=== PATIENT | male | born 1970 | race Caucasian/White ===

== ENCOUNTER 2023-08-30 10:21 | Inpatient (IN) ==
--- NOTE | 2023-08-04 14:35 | PAT Medication Instructions ---
Medication Instructions Date of Service August 04, 2023 Home Medications atenolol 50 mg tablet 50 mg PO QAM atorvastatin 40 mg tablet 40 mg PO PM cetirizine 10 mg tablet (Zyrtec) 10 mg PO QPM empagliflozin 25 mg tablet (Jardiance) 25 mg PO QAM famotidine 40 mg tablet 40 mg PO BID lansoprazole 30 mg delayed release,disintegrating tablet 30 mg PO BID rizatriptan 10 mg tablet 10 mg PO DIRECTED PRN Migraine Headache tamsulosin 0.4 mg capsule 0.4 mg PO HS fluticasone propionate 50 mcg/actuation nasal spray,suspension (Flonase Allergy Relief) 1 spray intranasal UD PRN when cutting grass semaglutide 0.25 mg or 0.5 mg (2 mg/3 mL) subcutaneous pen injector (Ozempic) 0.5 mg subcut WK MEDICATION INSTRUCTIONS: Continue as directed fluticasone propionate 50 mcg/actuation nasal spray,suspension (Flonase Allergy Relief) 1 spray intranasal UD PRN when cutting grass rizatriptan 10 mg tablet 10 mg PO DIRECTED PRN Migraine Headache Take morning of surgery With a small sip of water, OTHERWISE NOTHING TO EAT OR DRINK AFTER MIDNIGHT: atenolol 50 mg tablet 50 mg PO QAM famotidine 40 mg tablet 40 mg PO BID lansoprazole 30 mg delayed release,disintegrating tablet 30 mg PO BID Take evening before surgery tamsulosin 0.4 mg capsule 0.4 mg PO HS atorvastatin 40 mg tablet 40 mg PO PM cetirizine 10 mg tablet (Zyrtec) 10 mg PO QPM famotidine 40 mg tablet 40 mg PO BID lansoprazole 30 mg delayed release,disintegrating tablet 30 mg PO BID Other Notes STOP TAKING 3 DAYS BEFORE SURGERY: empagliflozin 25 mg tablet (Jardiance) 25 mg PO QAM PER RN PHONE INTERVIEW, LAST DOSE PRIOR TO SURGERY TO BE 08/22/23: semaglutide 0.25 mg or 0.5 mg (2 mg/3 mL) subcutaneous pen injector (Ozempic) 0.5 mg subcut WK If you have any questions please call us at [phone] or [phone] or [phone] or [phone]
--- NOTE | 2023-08-12 13:37 | Anesthesiology Consultation ---
Date of Service August 12, 2023 Assessment & Plan (1) Encounter for pre-operative examination: Plan - check BSG am DOS. - awaiting surgeon ordered medical clearance. Chart Review Chart Review: Pending: Refer to Additional Notes / Consult section and Patient seen in Pre Admission Testing Teaching & Discussion Pre-Anesthesia Teaching/Discussion Notes: Instructed NPO after midnight before surgery, except medications with 15 cc of water. Medication instructions provided according to the PAT guidelines. History Surgery Operation Date: 08/30/23 07:45 Proposed Procedures p L4-S1 Decompression and Fusion with Spinal Cord Monitoring - Tyson Harris DO Height/Weight Height: 5 ft 10.5 in Weight: 101.1 kg Allergies Allergy/AdvReac Type Severity Reaction Status Date / Time No Known Allergies Allergy Verified 08/04/23 13:44 Medications Home Medications Medication Instructions Recorded Confirmed Last Taken atenolol 50 mg tablet 50 mg PO QAM 08/24/22 08/04/23 Unknown atorvastatin 40 mg tablet 40 mg PO PM 08/24/22 08/04/23 Unknown cetirizine 10 mg tablet (Zyrtec) 10 mg PO QPM 08/24/22 08/04/23 Unknown empagliflozin 25 mg tablet 25 mg PO QAM 08/24/22 08/04/23 Unknown (Jardiance) famotidine 40 mg tablet 40 mg PO BID 08/24/22 08/04/23 Unknown lansoprazole 30 mg delayed 30 mg PO BID 08/24/22 08/04/23 Unknown release,disintegrating tablet rizatriptan 10 mg tablet 10 mg PO DIRECTED PRN Migraine 08/24/22 08/04/23 U nknown Headache tamsulosin 0.4 mg capsule 0.4 mg PO HS 08/24/22 08/04/23 Unknown fluticasone propionate 50 1 spray intranasal UD PRN when 08/04/23 08/04/23 Unknown mcg/actuation nasal cutting grass spray,suspension (Flonase Allergy Relief) semaglutide 0.25 mg or 0.5 mg (2 0.5 mg subcut WK 08/04/23 08/04/23 08/01/23 mg/3 mL) subcutaneous pen injector (Ozempic) Past Medical History Medical History (Updated 08/12/23 @ 13:46 by Tiffanie M. Onink, PA-C) BPH (benign prostatic hyperplasia) Degenerative disc disease Diabetes mellitus, type 2 NIDDM Dyslipidemia GERD (gastroesophageal reflux disease) controlled, stable per pt Hiatal hernia History of COVID-19 x2, most recent Jan 2022 > not hospitalized > symptoms resolved HTN (hypertension) controlled, stable per pt Migraines Sleep apnea no device Patient denies h/o stroke, seizures, heart attack, heart failure, blood clots/DVTs or blood transfusions. Exercise / Class Metabolic Activity II 4-5 Yardwork/Stairs/Walk up hill (denies chest discomfort or shortness of breath with one flight of stairs) Past Family History Family History Mother Diabetes Past Surgical History Surgical History H/O wisdom tooth extraction History of colonoscopy History of colonoscopy with polypectomy (03/2023) History of endoscopy History of spinal surgery (discectomy) lumbar History of vasectomy Past Anesthesia History No Hx of Anesthesia Complications and No Family Hx of Anesthesia Complications History of PONV No Hx of PONV and No Hx of Motion Sickness Social History Smoking Status: Never smoker tobacco type: smokeless tobacco Do You Dip or Chew Tobacco: No (hx, quit a few yrs ago/advised) Hx Alcohol Use: Yes alcohol intake frequency: holidays/special occasions only Hx Substance Use: No substance use type: does not use Review of Systems Patient denies chest pain, shortness of breath, dyspnea on exertion, fever, chills, cough, wheezing, or palpitations. Physical Exam Vital Signs Vitals BP 101/70 P 87 TEMP 98.4 SP02 97% on RA RESP 18 Physical Patient resting comfortably in chair in no acute distress, alert and oriented, responding appropriately throughout visit Full cervical extension range of motion without pain TMD 3.5 finger breadths Mallampati Score 2 Dentition:one crown, denies chipped or loose teeth, caps/crowns, implants or bridges Lungs: normal respiratory effort. Good air movement, clear throughout to auscult ation, no adventitious breath sounds Cardiac: regular rate and rhythm, no murmurs noted Carotid arteries: negative bruit bilat Lab Results Anesthesia Preop Results Results Anesthesia Widget: WBC 5.30 K/ul (4.8-10.8) 08/12/23 Hgb 16.5 g/dl (14.0-18.0) 08/12/23 Hct 48.7 % (42.0-52.0) 08/12/23 Plt 189 K/uL (130-400) 08/12/23 Na 138 mmol/L (136-145) 08/12/23 K 4.5 mmol/L (3.5-5.1) 08/12/23 Cl 105 mmol/L (98-107) 08/12/23 CO2 27 mmol/L (21-32) 08/12/23 BUN 22 mg/dl (6-23) 08/12/23 Creat 1.18 mg/dl (0.6-1.4) 08/12/23 Glucose Level 85 mg/dl (70-99(Fasting)) 08/12/23 PT 10.9 Seconds (9.0-12.0) 08/12/23 PTT 27 Seconds (21-31) 08/12/23 INR 1.0 (0.9-1.1) 08/12/23 HA1c 5.9 % (4.5-5.6) H 08/12/23 Urine Color Yellow 08/12/23 Urine Appearance Clear (Clear) 08/12/23 Urine pH 5.0 (4.5-7.5) 08/12/23 Urine Specific [place] 1.036 (1.000-1.030) H 08/12/23 Urine Protein Negative (Negative) 08/12/23 Urine Glucose (UA) 3+ (Negative) H 08/12/23 Urine Ketones Negative (Negative) 08/12/23 Urine Blood Negative (Negative) 08/12/23 Urine Nitrite Negative (Negative) 08/12/23 Urine Bilirubin Negative (Negative) 08/12/23 Urine Urobilinogen Negative (Negative) 08/12/23 Urine Leukocyte Esterase Negative (Negative) 08/12/23 Blood Type A Positive 08/12/23 Antibody Screen NEGATIVE 08/12/23 Testing Electrocardiogram Date: 08/12/23 NSR, rate 80 bpm Chest X-Ray Date: 08/12/23 No active disease in the chest. Stress Test Date: 01/02/21 Exercise MPHR 86% Negative stress echo EF 65% Normal LV wall motion No significant valvular pathology
--- NOTE | 2023-08-30 10:10 | History & Physical Bridge Note ---
Date of Service August 30, 2023 History & Physical Bridge Note I have examined the patient, reviewed the History & Physical and in the interval since the performance of the History & Physical I have noted the following changes of clinical significance: no changes noted
--- NOTE | 2023-08-30 10:11 | History & Physical Report ---
Date of Service August 30, 2023 Assessment & Plan (1) Neurogenic claudication due to lumbar spinal stenosis: Plan: L4-S1 decompression and fusion History of Present Illness Chief Complaint: Back and bilateral leg pain Primary Care Provider: Ab Crain DO This is a 53-year-old male presents with chronic persistent back and bilateral leg pain after failing since course of nonoperative care is here for surgical intervention. Allergies Allergy/AdvReac Type Severity Reaction Status Date / Time No Known Allergies Allergy Verified 08/04/23 13:44 Home Medications Medication Instructions Recorded Confirmed Type atenolol 50 mg tablet 50 mg PO QAM 08/24/22 08/04/23 History atorvastatin 40 mg tablet 40 mg PO PM 08/24/22 08/04/23 History cetirizine 10 mg tablet (Zyrtec) 10 mg PO QPM 08/24/22 08/04/23 History empagliflozin 25 mg tablet 25 mg PO QAM 08/24/22 08/04/23 History (Jardiance) famotidine 40 mg tablet 40 mg PO BID 08/24/22 08/04/23 History lansoprazole 30 mg delayed 30 mg PO BID 08/24/22 08/04/23 History release,disintegrating tablet rizatriptan 10 mg tablet 10 mg PO DIRECTED PRN Migraine 08/24/22 08/04/23 History Headache tamsulosin 0.4 mg capsule 0.4 mg PO HS 08/24/22 08/04/23 History fluticasone propionate 50 1 spray intranasal UD PRN when 08/04/23 08/04/23 History mcg/actuation nasal cutting grass spray,suspension (Flonase Allergy Relief) semaglutide 0.25 mg or 0.5 mg (2 0.5 mg subcut WK 08/04/23 08/04/23 History mg/3 mL) subcutaneous pen injector (Ozempic) Past Med/Surg History Problem List (Updated 08/30/23 @ 10:11 by Tyson Harris DO) Neurogenic claudication due to lumbar spinal stenosis Encounter for pre-operative examination Crushing injury of right forearm (Acute) 10/26/14 Medical History (Updated 08/30/23 @ 10:11 by Tyson Harris DO) Hiatal hernia Migraines Degenerative disc disease Diabetes mellitus, type 2 NIDDM History of COVID-19 x2, most recent Jan 2022 > not hospitalized > symptoms resolved HTN (hypertension) controlled, stable per pt Sleep apnea no device GERD (gastroesophageal reflux disease) controlled, stable per pt Dyslipidemia BPH (benign prostatic hyperplasia) Surgical History History of endoscopy History of colonoscopy with polypectomy (03/2023) History of colonoscopy H/O wisdom tooth extraction History of spinal surgery (discectomy) lumbar History of vasectomy Family History Mother Diabetes Social History Smoking Status: Never smoker Second Hand Exposure: No; Do You Dip or Chew Tobacco: No (hx, quit a few yrs ago/advised); Hx Alcohol Use: Yes Hx Substance Use: No Preferred Language: Serbian Communication Ability: Effective Customer Resource Specialist Required: No Beliefs That Will Affect Care: None Current Living Situation: Spouse Feels Safe at Home: Yes Assistive Devices: Contacts and Glasses Physical Exam Physical Exam: Patient is alert and oriented Heart regular in rhythm Lungs clear
[~2023-08-30 10:21] MED LIST: HYDROmorphone INJ 2 MG/ML SYR/VIAL ONE; MIDAZOLAM HCL 1 MG/ML 2ML VIAL ONE
[2023-08-30] MEDS: ACETAMINOPHEN 500 MG TAB PO SCH (10:54)
[2023-08-30] MEDS: CeleBREX 200 MG CAP PO SCH (10:55)
[2023-08-30] MEDS: GABAPENTIN 900 MG DOSE PO SCH (10:55)
[2023-08-30] MEDS: LR 60ML/HR IV SCH (10:55)
[2023-08-30] MEDS: LR 15ML/HR IV SCH (11:10)
[2023-08-30] MEDS ORDERED: ATROPINE SULFATE 0.1 MG/ML 10ML SYR IV PRN (11:13)
[2023-08-30] MEDS ORDERED: DROPERIDOL 5 MG/2 ML VIAL IV PRN (11:13)
[2023-08-30] MEDS ORDERED: ePHEDrine sulfate 50 MG/ML AMP IV PRN (11:13)
[2023-08-30] MEDS: ceFAZolin 2000MG 2,000 MG/15 ML SYR IV SCH ×2 (11:25→20:13)
[2023-08-30] MEDS ORDERED: ONDANSETRON INJ 2 MG/ML 2 ML VIAL ONE (11:53)
[2023-08-30] MEDS ORDERED: LIDOCAINE 2% 2 ML VIAL/AMP(20MG/ML) INFIL ONE (11:53)
[2023-08-30] MEDS ORDERED: SODIUM CHLORIDE 0.9% PF INJ 10 ML VIAL ONE (11:53)
[2023-08-30] MEDS ORDERED: SUGAMMADEX SODIUM 200 MG/2 ML VIAL IV ONE (11:53)
[2023-08-30] MEDS ORDERED: PHENYLEPHRINE HCL 10 MG/ML VIAL ONE (11:53)
[2023-08-30] MEDS ORDERED: PROPOFOL IV EMULSION 10 MG/ML 20 ML VIAL IV ONE (11:53)
[2023-08-30] MEDS ORDERED: DEXAMETHASONE SOD INJ 4 MG/ML VIAL ONE (11:53)
[2023-08-30] MEDS ORDERED: ROCURONIUM BROMIDE 10 MG/ML 5 ML VIAL IV ONE ×2 (11:53→11:56)
[2023-08-30] MEDS: BUPIVACAINE/EPINEPHRINE 0.25% 1:200,000 30 ML VIAL ONE (12:20)
[2023-08-30] MEDS ORDERED: ePHEDrine sulfate 50 MG/ML AMP ONE (13:26)
[2023-08-30] MEDS: ceFAZolin 330 MG/ML 1 GM VIAL ONE (13:41)
[2023-08-30] MEDS: FLOSEAL HEMOSTATIC MATRIX 10ML TOP ONE (13:41)
--- NOTE | 2023-08-30 13:49 | Operative Report ---
Post Operative Report Pre & Post Diagnosis Operation Date: 08/30/23 12:15 Pre-Op Diagnosis: Neurogenic claudication due to lumbar spinal stenosis, L5 - S1 Post-Op Diagnosis: Neurogenic claudication due to lumbar spinal stenosis, L5 - S1 I identified the patient and participated in the time-out.: Yes Procedure Operation Date: 08/30/23 12:15 Actual Procedures #1 revision decompression with bilateral medial facetectomies and foraminotomies L4-L5 L5-S1. #2 posterior spinal fusion L4-L5 L5-S1. #3 placed posterior instrumentation L4-S1. #4 interbody fusion L4-L5 L5-S1. #5 there is a Spira limb by 26 mm at L4-5 and 12 x 26 mm x 2 at L5-S1. #6 placement locally harvested morselized autograft and posterior gutters. #7 placement infuse collagen sponge combined with Koros in the posterior lateral gutters and Morpheus interbody space. Surgeon Tyson Harris, DO [facility] Stephanie Vanegas Estimated Blood Loss 200 Findings See Below The patient is 5 foot 10 weighing over 100 kg with a BMI in excess of 31. Patient body habitus did contribute to significant technical difficulty with positioning exposure and the procedure itself adding at least 50% increased operative time. Specimens None Indications This is a 53-year-old male who presents problems diagnosis after failing course of nonoperative care is here for surgical invention. Description of Procedure Patient was met with identified informed consent obtained. Patient was then taken to the operative suite underwent ablation placed in a prone position on the Ketan table on top of the Phoenix frame. All bony prominences well-padded eyes inspected to ensure no external pressure placed upon the. Sharp dissection with the assistance of Bovie cautery was then performed down to and exposing the remaining lamina and transverse processes of L4-L5 and the sacral ala bilaterally. From caudal cephalad fashion revision decompression was performed. I performed a bilateral medial facetectomies and foraminotomies at L5-S1 addressing significant subarticular and foraminal disease. This was followed by bilateral medial facetectomies foraminotomies L4-L5 addressing severe subarticular and foraminal stenosis. Pedicle screws were then placed and held for L5 and S1 levels bilaterally with assistance of fluoroscopy in the process jewel placed. By way of transforaminal approach on the right a discectomy of L5- S1 was performed endplates guided to subcortical bleeding bone and a 12 x 26 mm spiral cage filled with Morpheus bone graft tapped in position. Then proceeded to L5 S1 neuroforamen on the left. Discectomy again performed endplates guided to subcortical bleeding bone and a second 12 x 26 mm spiral cage filled Morpheus bone graft tapped in position. Then proceeded L4-[address] transforaminal approach and left complete discectomy performed endplates guided to subcortical bleeding bone and a 11 x 26 mm Spira cage with Morpheus tapped in position. The rods then compressed locked in final position bilaterally. The transverse processes of L4-5 and sacral ala burred to subcortical bleeding bone. Infuse collagen sponge combined with Koros bone graft and locally harvested morselized graft was then placed in the posterior gutters. 15 round EMANUEL inserted. The incision was then closed with 1 Vicryl in the fascia 2-0 Vicryl subcutaneously and 4 Monocryl for final skin closure. Steri-Strips sterile dressing placed. Patient awakened taken to PACU stable condition. Please note Stephanie Vanegas was present at the entire procedure and all the patient position complex portion of the surgery and final skin closure. I attest to the content of the Intraoperative Record and any orders documented therein. Any exceptions are noted below.
[2023-08-30] MEDS: HYDROmorphone INJ 2 MG/ML SYR/VIAL IV PRN (14:08)
--- NOTE | 2023-08-30 14:18 | Fluoroscopy Report ---
FL lumbar spine 2-3V CLINICAL HISTORY: L4-S1 DECOMPRESSION AND FUSION TECHNIQUE: 2 views were obtained with the C-arm in the OR with the above procedure. Total fluoroscopy time was 30 seconds. Radiation dose was 23.8 mGy. Comparison: None available at the time of this dictation. FINDINGS/IMPRESSION: Intraoperative images were obtained of L4-S1 decompression and fusion. Please correlate with intraoperative fluoroscopy and operative report. ACT 112: Negative or not required by law. Electronically signed by: Shemar Mansfield M.D. 08/30/2023 2:17 PM
[2023-08-30] MEDS ORDERED: MAGNESIUM HYDROXIDE SUSP 30 ML UDC PO PRN (15:18)
[2023-08-30] MEDS ORDERED: diphenhydrAMINE Capsule 25 MG CAP PO PRN (15:18)
[2023-08-30] MEDS ORDERED: METOCLOPRAMIDE HCL INJ 5 MG/ML 2 ML VIAL IV PRN (15:18)
[2023-08-30] MEDS ORDERED: NALOXONE HCL 0.4 MG/1 ML VIAL/CARP IV PRN (15:18)
[2023-08-30] MEDS ORDERED: ACETAMINOPHEN 1,000 MG/100 ML VIAL IV PRN (15:18)
[2023-08-30] MEDS ORDERED: PHARMACY GLYCEMIC MGMT CONSULT PRN (15:18)
[2023-08-30] MEDS ORDERED: RIZATRIPTAN BENZOATE 10 MG TAB PO PRN (15:18)
[2023-08-30] MEDS ORDERED: bisacodyL 10 MG SUPP PR PRN (15:18)
[2023-08-30] MEDS ORDERED: ONDANSETRON 4 MG OD TAB PO PRN (15:18)
[2023-08-30] MEDS ORDERED: ALUMINUM/MAGNESIUM SUSP 30 ML UDC PO PRN (15:18)
[2023-08-30] MEDS ORDERED: HYDROmorphone INJ 1 MG/ML SYRINGE IV PRN (15:18)
[2023-08-30] MEDS ORDERED: FAMOTIDINE 20 MG TAB PO PRN (15:18)
[2023-08-30] MEDS ORDERED: ACETAMINOPHEN 500 MG TAB PO PRN (15:18)
[2023-08-30] MEDS ORDERED: LORazepam 0.5 MG TAB PO PRN (15:18)
[2023-08-30] MEDS ORDERED: HYDROmorphone INJ 0.5 MG/0.5 ML SYR IV PRN (15:18)
[2023-08-30] MEDS ORDERED: SOD PHOSPHATE/SOD BIPHOSPHATE ENEMA 132 ML BTL PR PRN (15:18)
[2023-08-30] MEDS ORDERED: ONDANSETRON INJ 2 MG/ML 2 ML VIAL IV PRN (15:18)
[2023-08-30] MEDS ORDERED: LORazepam 0.5 MG in SYRINGE 0.25 ML IV PRN (15:18)
[2023-08-30] MEDS ORDERED: PROMETHAZINE HCL 12.5 MG in SODIUM CHLORIDE 0.9% 50 ML IV PRN (15:18)
[2023-08-30] MEDS ORDERED: DO NOT ADMINISTER PNEUMOCOCCAL VACCINE PRN (15:18)
[2023-08-30] MEDS ORDERED: DO NOT ADMINISTER FLU VACCINE PRN (15:18)
[2023-08-30] MEDS ORDERED: hydrOXYzine HCl 25 MG TAB PO PRN (15:18)
[2023-08-30] MEDS: SODIUM CHLORIDE 0.9% 1,000 ML IV SCH (15:43)
[2023-08-30] MEDS ORDERED: GLUCAGON FOR INJ 1 MG VIAL IM PRN (15:45)
[2023-08-30] MEDS ORDERED: CARBOHYDRATES FOR HYPOGLYCEMIA PO PRN (15:45)
[2023-08-30] MEDS ORDERED: GLUCOSE 40% GEL 15 GM TUBE PO PRN (15:45)
[2023-08-30] MEDS ORDERED: DEXTROSE 50% 50 ML SYRINGE IV PRN (15:45)
[2023-08-30] MEDS ORDERED: GLUCOSE 10 TAB/TUBE PO PRN (15:45)
--- OUTSIDE RECORDS SUMMARY | 2023-08-30 16:06 | External Medical Summary | Summary of Care ---
Author Name Unknown Organization [facility] Address [address] [address] Phone [phone] Care Team Providers Care Application Chemist Name Role Phone Breann Hooker DO, David Vincent Primary Care Provid er Reason for Visit * Reason Comments pre-op exam Back surgery UOC 08/15 5 Encounter Details Date Type Department Care Team (Late st Contact Info) Description 08/16/2023 9:00 AM EDT Office Visit [facility] [address] [phone] Eloy Ding MD [address] [id number] Preoperative clearance*; Displacement of lumbar intervertebral disc without myelopathy; Type 2 diabetes mellitus with hemoglobin A1c goal of less than 7.0% ([facility]); HTN, GOAL BELOW 140/90; Dyslipidemia; MARIAMA (obstructive sleep apnea) Allergies No known active allergiesdocumented as of this encounter (statuses as of 08/16/2023) Medications Medication Sig Dispensed Refills Start Date End Date Status NITROGLYCERIN 0.4 MG SL SUBLIndications:Ch est pain One tablet under tongue if needed for chest pain. May repeat 3 times. If chest pain continues, call [phone] 03/21/2009 Active Additional Information Patient not taking.Reported on 08/16/2023 Cetirizine HCl 10 MG Oral Capsule Take 1 Capsule by mouth in the morning. Active diphenhydrAMINE-AP AP (sleep) 25-500 MG Oral Tablet Take 1 Tablet by mouth daily as needed for Sleep. Active ONETOUCH DELICA LANCETS 33G MISCIndications:Ty pe 2 diabetes mellitus with hemoglobin A1c goal of less than 7.0% (HCC) Test blood sugar two times a day Dx:E11.9 100 Each 11 04/09/2017 Active Tamsulosin HCl 0.4 MG Oral Capsule (Flomax)Indication s:BPH without obstruction/lower urinary tract symptoms Take 1 Capsule by mouth in the morning. 90 Capsule 1 08/26/2022 Active OneTouch Verio In Vitro Strip (Glucose Blood)Indications: Type 2 diabetes mellitus with hemoglobin A1c goal of less than 7.0% (HCC) Test blood sugar two times a day DX: E11.9 100 Strip 11 09/23/2022 Active Empagliflozin 25 MG Oral Tablet (Jardiance)Indicat ions:Type 2 diabetes mellitus with hemoglobin A1c goal of less than 7.0% (HCC) TAKE ONE TABLET BY MOUTH EVERY MORNING 90 Tablet 3 01/19/2023 Active Atorvastatin Calcium 40 MG Oral Tablet (Lipitor)Indicatio ns:Hyperlipidemia with target LDL less than 130 TAKE ONE TABLET BY MOUTH DAILY 90 Tablet 3 01/19/2023 Active Ozempic (0.25 or 0.5 MG/DOSE) 2 MG/3ML Solution Pen-injector (Semaglutide(0.25 or 0.5MG/DOS)) Inject 0.375 mg under the skin once weekly 9 mL 1 01/27/2023 Active Lansoprazole 30 MG Oral Capsule Delayed Release (Prevacid)Indicati ons:Reflux esophagitis TAKE ONE CAPSULE BY MOUTH EVERY MORNING AND TAKE ONE CAPSULE BEFORE BEDTIME 180 Capsule 2 03/23/2023 03/22/2024 Active Rizatriptan Benzoate 10 MG Oral Tablet DisintegratingIndi cations:Migraine with aura, intractable TAKE 1 TABLET BY MOUTH NEEDED FOR MIGRAINE. MAY REPEATIN 2 HOURS IF NEEDED. 10 Tablet 3 05/25/2023 05/24/2024 Active Hydrocortisone (Perianal) 2.5 % External Cream (Proctozone-HC)Ind ications:Internal hemorrhoids Administer into the rectum 2 times a day. For no more than 2 weeks at a time 30 g 3 06/11/2023 Active Additional Information Patient not taking.Reported on 08/16/2023 Atenolol 50 MG Oral Tablet (Tenormin)Indicati ons:HTN, goal below 140/90 TAKE ONE TABLET BY MOUTH EVERY MORNING 90 Tablet 3 07/18/2023 07/17/2024 Active Cimetidine 400 MG Oral Tablet (Tagamet) TAKE ONE TABLET BY MOUTH IN THE MORNING AND ONE TABLET BEFORE BEDTIME. 180 Tablet 1 08/02/2023 08/01/2024 Active documented as of this encounter (statuses as of 08/16/2023) Active Problems Problem Noted Date Diagnosed Date BPH without obstruction/lower urinary tract symp toms 11/04/2020 Type 2 diabetes mellitus wit h hemoglobin A1c goal of less than 7.0% 10/20/2016 High triglycerides 04/10/2015 Dyslipidemia 04/10/2015 MARIAMA (obstructive sleep apnea) 05/12/2010 Displacement of lumbar inter vertebral disc without myelopathy 10/04/2009 Overview: Surgery at [facility] September 10, 2009, Dr Willard Montalvo MD HTN, GOAL BELOW 140/90 01/02/2009 Overview: Modified per HTN protocol #16. Reflux esophagitis 01/04/2003 Overview: Dx on EGD Sep 2006. Moderate iomprovement with omeprazol 20mg daily and Protonix 40mg daily. Trial of omeprazol 20mg BID. Migraine with aura, intractable 01/04/2003 documented as of this encounter (statuses as of 08/16/2023) Resolved Problems Problem Noted Date Diagnosed Date Resolved Date Severe obesity with body mas s index (BMI) of 35.0 to 39.9 with serious comorbidity 08/24/2017 Overview: ICD-10 update of inactive diagnosis IFG (impaired fasting glucose) 04/14/2016 10/20/2016 Tobacco use disorder 04/04/2014 020 BMI 35-39 ISOLATED (SEE ACTUAL BMI) 07/29/2009 08/24/2017 Overview: Per Obesity Protocol, #19 HYPERTENSION NOS 01/04/2003 01/02/2009 Overview: Modified per HTN protocol #16. documented as of this encounter (statuses as of 08/16/2023) Immunizations Name Administration Dates Next Due COVID-19 mRNA, LNP-s, No Pre serve, 2-Dose Series (Pfizer) 06/13/2020,05/20/2020,03/18/2020 Seasonal Influenza, Split, I IV3, With Preserve, Inj 03/08/2012 TDAP (age 10 and older)(Boostrix) 04/04/2014 documented as of this encounter Social History Tobacco Use Types Packs/Day Years Used Date Smoking Tobacco: Never Smokeless Tobacco: Former Chew Alcohol Use Standard Drinks/Week Comments Yes 0 (1 standard drink = 0.6 oz pur e alcohol) socially PHQ-2 Answer Date Recorded PHQ Adult Total Score 0 08/26/2022 Hunger Vital Sign Answer Date Recorded Within the past 12 months, y ou worried that your food would run out before you got the money to buy more. Never true 08/27/19 23 Within the past 12 months, t he food you bought just didn't last and you didn't have money to get more. Never true 08/26/2022 Childcare Answer Date Recorded Do you feel overwhelmed with taking care of a child, family member or friend? No 08/26/2022 Does your family need help f inding childcare? (Household - for ages 0-17 years) Not on file 08/26/2022 Clothing Answer Date Recorded Have you been unable to get clothing when it was really needed? No 08/26/2022 Is your family able to get c lothes or diapers when needed? (Household - for ages 0-17 years) Not on file 08/26/2022 Personal Safety Answer Date Recorded Do you feel unsafe or have concerns for your saf ety? No 08/26/2022 Do you have concerns for you r family's safety? (Household - for ages 0-17 years) Not on file 08/26/2022 Utilities Answer Date Recorded Do you have trouble paying y our heating, water, or electric bill? No 08/26/2022 Is your family able to pay t he heat, water, or electric bill? (Household - for ages 0-17 years) Not on file 08/26/2022 Does your family have access to good internet? (Household - for ages 0-17 years) Not on file 08/26/2022 Employment Status Answer Date Recorded Are you unemployed or without regular income? No 08/26/2022 Does the household have a re gular source of income? (Household - for ages 0-17 years) Not on file 08/26/2022 Social Connections Answer Date Recorded How often do you feel lonely or isolated from th ose around you? Never 08/26/2022 Financial Resource Strain Answer Date R ecorded Do you have any trouble payi ng for your medications, or do you think you might in the future? No 08/26/2022 Does your family have troubl e paying for medicine? (Household - for ages 0-17 years) Not on file 08/26/2022 Transportation Needs Answer Date Record ed READ ONLY Do you have troubl e getting a ride to medical visits or work? Never True 08/26/2022 Does your family have a hard time getting a ride to doctors visits? (Household - for ages 0-17 years) Not on file 08/26/2022 Has lack of transportation k ept you from medical appointments, meetings, work, or from getting things needed for daily living? Check all that apply. (Adult - for ages 18 years and over) Not on file 08/26/2022 Do you (or your family) have trouble finding or paying for a ride (transportation)? (Household - for ages 0-17 years) Not on file 08/26/2022 Housing Stability Answer Date Recorded Do you currently live in a s helter or have no steady place to sleep at night? No 08/26/2022 READ ONLY Do you think you a re at risk of becoming homeless? No 08/26/2022 Does your family worry about paying for your home or becoming homeless? (Household - for ages 0-17 years) Not on file 0 08/26/2022 Are you homeless or worried that you might be in the future? (Adult - for ages 18 years and over) Not on file Are you (or your family) keri eless or worried that you might be in the future? (Household - for ages 0-17 years) Not on file Food Insecurity Answer Date Recorded Do you need food for this week? No 08/26/2022 Are you able to get enough f ood for your family? (Household - for ages 0-17 years) Not on file 08/26/2022 Does your family need food t his week? (Household - for ages 0-17 years) Not on file 08/26/2022 Do you always have enough fo od for your family? (Household - for ages 0-17 years) Not on file 08/26/2022 Sex and Gender Information Value Date Recorded Sex Assigned at Male 10/04/2018 3:54 PM EDT Gender Identity Male 10/04/2018 3:54 PM EDT Sexual Orientation Straight 10/04/2018 3: 54 PM EDT Job Start Date Occupation Industry Not on file Not on file Not on file documented as of this encounter Last Filed Vital Signs Vital Sign Reading Time Taken Comments Blood Pressure 102/60 08/16/2023 9:06 AM EDT Pulse 75 08/16/2023 9:06 AM EDT Temperature 35.9 C (96.7 F) 08/16/2023 9:06 AM ED T Respiratory Rate 18 08/16/2023 9:06 AM EDT Oxygen Saturation 100% 08/16/2023 9:06 AM EDT Inhaled Oxygen Concentration - - Weight 101.5 kg (223 lb 12.8 oz) 08/16/2023 9:06 AM EDT Height - - Body Mass Index 32.11 06/16/2023 3:34 PM EDT documented in this encounter Patient Instructions * Patient Instructions* Rosy Rubio, MED ASSIST - 08/16/2023 9:04 AM EDT Diabetes: Keeping Feet Healthy Inspect your feet every day for signs of a problem. Diabetes can damage nerves in your feet and cause neuropathy. This condition makes it hard for you to feel injuries or sore spots. Diabetes can also change blood flow, making it harder for small problems, like a blister, to heal properly. In fact, minor injuries can quickly become serious infections that send you to the hospital. Practice self-care to protect your feet and keep them healthy. Take Special Care Inspect your feet daily for problems such as redness, blisters, cracks, dry skin, or numbness. Use a mirror to see the bottoms of your feet. Or, ask for help. Manage your diabetes. Monitor and control your blood sugar. Take all your medications as prescribed. Avoid walking barefoot, even indoors. Wash your feet with warm water and mild soap. Dry well, especially between toes. Dont treat corns or calluses yourself. Talk to your doctor or buckle inspector (a doctor who specializes in foot care) if you need assistance trimming your toenails. Use moisturizing cream or lotion if you have dry skin, but dont use it between toes. Dont use heating pads on your feet. If you have neuropathy, you could get a burn and not feel it. Stop smoking. Smoking restricts blood flow and can make it harder for wounds to heal. Have Regular Checkups Foot problems can develop quickly. So be sure to follow your healthcare teams schedule for regular checkups. During office visits, take off your shoes and socks as soon as you get in the exam room. Ask your healthcare provider to examine your feet for problems. This will make it easier to find and treat small skin irritations before they get worse. Regular checkups can also help keep track of the blood flow and feeling in your feet. If you have neuropathy, you may need to have checkups more often. Wear Proper Footwear Wearing proper footwear is very important. If areas of your feet have been damaged by too much pressure, your healthcare provider may recommend changing your footwear. In some cases, avoiding high heels or tight work boots may be all thats needed. Or, your healthcare provider may recommend special shoes or custom inserts. These help protect your feet and keep existing irritations from getting worse. If you need special footwear, ask your healthcare provider if you qualify for [employer] diabetic shoe program. Make Sure Shoes and Socks Fit Any pair of shoes--new or old--should feel comfortable as soon as you put them on. There shouldnt be any rubbing when you walk. Wear the right shoe for any activity. For instance, a running shoe is designed to keep your feet injury-free while jogging. Buy shoes at the end of the day, when your feet are larger. Make sure they provide support without feeling too loose. Make sure your socks fit, t oo. Wear soft, seamless, well-padded socks for activity. Cotton or microfiber socks are best to help to absorb sweat. To protect your feet, avoid shoes that are open-toed or open-heeled. If you have questions about what kinds of shoes and socks are best, talk to your healthcare team. Get Regular Exercise Regular exercise improves blood flow in your feet. It also increases foot strength and flexibility.Gentle exercises, like walking or riding a stationary bicycle, are best. You can also do special foot exercises. Just be sure to talk with your healthcare provider before starting any exercise program. Also mention if any exercise causes pain, redness, or other signs of foot problems. Note: If you have any kind of break in the skin of your foot or ankle, keep the area clean. Then call your doctor--especially if the area doesnt appear to be healing. [id number] [employer], [address] [place] [address]. All rights reserved. This information is not intended as a substitute for professional medical care. Always follow your healthcare professional's instructions. documented in this encounter Progress Notes * Eloy Ding MD - 08/16/2023 9:09 AM EDT Images from the original note were not included. History of Present Illness Mis Lopez is a 53 year old male that presents for pre-op exam (Back surgery UOC 08/29) His PCP is Dr. Crain. He is here at the request of Dr. Harris for clearance for back surgery on 08/30/23. He fell at work one day a little over a year ago, and through work he had to go to [facility] and they sent him to Dr. Harris in [place]. His symptoms have been getting progressively worse. They are going to do spinal decompression and fusion from L3-S1 on 08/30/23. He has been having pain in his low back on both sides, and the pain radiates down his left leg. He had a laminectomy in 2009 and he had no problems w/ that procedure. He has never had a problem w/ any procedure or anesthetic that he has had. He was diagnosed with diabetes around 2017. Metformin diarrhea and his A1c had gotten up to 11. Then he got on ozempic and jardiance and he lost 50 pounds. Recently his sugars have been running in the low 100s. He will occasionally have a low sugar spell if he goes a long time w/o eating. He hasn't checked his bp recently, but his bp has been good. He has sleep apnea. He tried a CPAP machine but could not tolerate it. It has gotten better since he has lost weight. His sleep is now just bothered by his back. He has never had any problems w/ his heart. He has had some heart studies for palpitations and those were normal. His back not withstanding, he is very active. He could go up 5 flights of stairs w/o any difficulty. Last week he had a CXR and EKG and blood work done at [facility]. He is not sure of the results. ROS: NO f/c; no n/v/d; no cp/sob; no cough/cold symptoms; no pain w/ urination/UTI symptoms. Physical Exam Vitals: 08/16/23 0906 Temp: 35.9 C (96.7 F) Pulse: 75 Resp: 18 SpO2: 100% BP: 102/60 BP Readings from Last 3 Encounters: 08/16/23 102/60 06/16/23 106/78 06/11/23 153/75 Physical Exam Vitals reviewed. Constitutional: General: He is not in acute distress. Appearance: Normal appearance. He is not ill-appearing. HENT: Right Ear: Tympanic membrane, ear canal and external ear normal. Left Ear: Tympanic membrane, ear canal and external ear normal. Nose: Nose normal. Mouth/Throat: Mouth: Mucous membranes are moist. Pharynx: Oropharynx is clear. No oropharyngeal exudate or posterior oropharyngeal erythema. Eyes: Extraocular Movements: Extraocular movements intact. Conjunctiva/sclera: Conjunctivae normal. Pupils: Pupils are equal, round, and reactive to light. Cardiovascular: Rate and Rhythm: Normal rate and regular rhythm. Heart sounds: Normal heart sounds. No murmur heard. No friction rub. No gallop. Pulmonary: Effort: Pulmonary effort is normal. Breath sounds: Normal breath sounds. No wheezing, rhonchi or rales. Abdominal: General: Bowel sounds are normal. There is no distension. Palpations: Abdomen is soft. There is no mass. Tenderness: There is no abdominal tenderness. There is no guarding. Musculoskeletal: Cervical back: Normal range of motion and neck supple. Skin: General: Skin is warm and dry. Neurological: Mental Status: He is alert and oriented to person, place, and time. Psychiatric: Mood and Affect: Mood normal. Behavior: Behavior normal. I have reviewed the following results: CMP, Lipid Panel, and Hemoglobin A1C Assessment and Plan Preoperative clearance Labs, CXR, and EKG from [facility] are requested and reviewed. He is cleared for surgery. Fax to be sent to [facility] [place]. Displacement of lumbar intervertebral disc without myelopathy Indication for clearance. Type 2 diabetes mellitus with hemoglobin A1c goal of less than 7.0% ([facility]) This is well controlled. Continue jardiance and ozempic. - DIABETES FOOT EXAM HTN, GOAL BELOW 140/90 Well controlled. Continue atenolol. Dyslipidemia LDL is 74. Continue lipitor. MARIAMA (obstructive sleep apnea) Unable to tolerate CPAP; improved w/ weight loss. Wrap-Up Follow Up: Return if symptoms worsen or fail to improve and as scheduled. Time: I spent a total of 40-54 minutes (exact time 40 mins) on the date of service in preparation, delivery, and documentation of the care provided to Mis Lopez excluding any time spent in the performance of separately billed services. * Rosy Rubio, MED ASSIST - 08/16/2023 9:01 AM EDT Socks and Shoes Removed for Annual Diabetic Foot Screening RIGHT FOOT: No Reddened, Cracking, Or Open Areas Noted. RIGHT Dorsalis Pedis Pulse: Palpable RIGHT Posterior Tibial Pulse: Palpable RIGHT Monofilament:Patient reports feeling monofilament pressure on plantar surface of foot LEFT FOOT: No Reddened, Cracking or Open Areas Noted. LEFT Dorsalis Pedis Pulse: Palpable LEFT Posterior Tibial Pulse: Palpable LEFT Monofilament:Patient reports feeling monofilament pressure on plantar surface of foot Do you need diabetic shoes: No DM Foot Exam completed today. Provider aware. CANDIS Anna documented in this encounter Nursing Notes * Rosy Rubio MED ASSIST - 08/16/2023 8:58 AM EDT Chief Complaint Patient presents with pre-op exam Back surgery UOC 08/29 Patient has been verbally educated on the need or importance of Immunizations: hep b, prevnar, shingrix and has declined topic(s). documented in this encounter Plan of Treatment Upcoming Encounters Date Type Department Care Team (Late st Contact Info) Description 08/24/2023 6:10 PM EDT Pharmacy Pharmacy, [address] [place] [address] Pharmacist2, [facility] [address] [address] 12/22/2023 3:40 PM EST [place] [facility] [address] [place] [phone] Ab Crain Jr., DO [address] [phone] Scheduled Procedures Name Priority Associated Diagnoses Date/Ti me COLONOSCOPY FLEXIBLE PROXIMA L DIAGNOSTIC Recall History of colonic polyps Health Maintenance Due Date Last Done Comments Pneumococcal Vaccine: Pediatrics (0 to 5 Years) and At-Risk Patients (6 to 64 Years) (1 of 2 - PCV) 06/01/1975 HIV Screening 1984 Hepatitis C Screening 06/01/1987 Hepatitis B (1 of 3 - 19+ 3-dose series) 1988 Cologuard 2014 Fecal Occult Blood Test 2014 Sigmoidoscopy 2014 Zoster Vaccines (1 of 2) 06/01/2019 Diabetic Eye Exam 05/30/2021 05/30/2020, , 01/04/2018, Additional history exists COVID-19 Vaccine ( season) 2022 06/13/2020, 05/20/2020, 03/18/2020 Depression Screening 08/27/2023 08/26/2022 Influenza Vaccine (FLU shot) (#1) 2023 03/08/2012 HbA1c 12/11/2023 06/11/2023, 11/16, 08/29/2022, Additional history exists DTaP,Tdap,and Td Vaccines (2 - Td or Tdap) 04/04/2024 04/04/2014, 04/01/2003 Albumin/Creatinine Ratio 06/10/2024 024, 06/18/2021, 05/01/2020, Additional history exists GFR 06/10/2024 06/11/2023, 11/16, 08/29/2022, Additional history exists Diabetic Foot Exam 08/15/2024 08/16/2023, 0 08/26/2022, 06/05/2021, Additional history exists Colonoscopy 03/19/2028 03/19/2023, 03/2023, 11/13/2019, Additional history exists Colorectal Cancer Screening 03/19/2028 Lipid Panel 06/10/2028 06/11/2023, 11/16, 08/29/2022, Additional history exists RETIRED - COLONOSCOPY-EVERY 5 YRS AGES 18-100 Discontinued 03/19/2023, 03/19/2023, 11/13/2019, Additional history exists GARDASIL-HPV IMMUNIZATION SERIES Aged Out No longer eligible based on patient's age to complete this topic MENINGOCOCCAL (MENACTRA/MENVEO) Aged Out No longer eligible based on patient's age to complete this topic documented as of this encounter Medical Devices Implanted Type Area Buyer Intern Device Identifier Shelf Expiration Date Model / Serial / Lot Blakely Ph Capsule Implanted:Qty: 1 on 12/25/2019 by Tasneem Bal DO at ENDOSCOPY [facility] N/A: Esophagus 03/27/2021 [id number] / / documented as of this encounter Visit Diagnoses Diagnosis Preoperative clearance- Primary Preoperative examination, unspecified Displacement of lumbar intervertebral disc without myelopathy Type 2 diabetes mellitus with hemoglobin A1c goal of less than 7.0% (HCC) HTN, GOAL BELOW 140/90 Unspecified essential hypertension Dyslipidemia Other and unspecified hyperlipidemia MARIAMA (obstructive sleep apnea) Obstructive sleep apnea (adult) (pediatric) documented in this encounter Additional Health Concerns Infection Onset Date Last Indicated Resolved Time Salmonella 12/25/2021 12/25/2021 documented as of this encounter Care Teams Application Chemist Relationship Specialty Start Date End Date Ab Crain Jr., DO [address] [place] [phone] PCP - General Family Medicine 01/01/11 documented as of this encounter
--- OUTSIDE RECORDS SUMMARY | 2023-08-30 16:06 | External Medical Summary | Summary of Care ---
Author Name Unknown Organization [facility] Address [address] [place] [address] Phone [phone] Care Team Providers Care Microarray Specialist Name Role Phone Breann Hooker DO, David Vincent Primary Care Provid er Reason for Visit * Reason Comments Appointment Encounter Details Date Type Department Care Team (Late st Contact Info) Description 08/24/2023 6:10 PM EDT [address] [id number] Pharmacist2, [facility] [place] [id number] [place] [id number] Type 2 diabetes mellitus with hemoglobin A1c goal of less than 7.0% ([facility]ER[facility])* Allergies No known active allergiesdocumented as of this encounter (statuses as of 08/24/2023) Medications Medication Sig Dispensed Refills Start Date End Date Status NITROGLYCERIN 0.4 MG SL SUBLIndications:Ch est pain One tablet under tongue if needed for chest pain. May repeat 3 times. If chest pain continues, call [phone] 03/21/2009 Active Additional Information Patient not [...] day Dx:E11.9 100 Each 11 04/09/2017 Active OneTouch Verio In Vitro Strip (Glucose [...] BEDTIME. 180 Tablet 1 08/02/2023 08/01/2024 Active Tamsulosin HCl 0.4 MG Oral Capsule (Flomax)Indication s:BPH without obstruction/lower urinary tract symptoms Take 1 Capsule by mouth in the morning. 90 Capsule 3 08/23/2023 Active documented as of this encounter (statuses as of 08/24/2023) Active Problems Problem Noted Date Diagnosed Date BPH without obstruction/lower urinary tract symp toms 11/04/2020 Type 2 diabetes mellitus wit h hemoglobin A1c goal of less than 7.0% 10/20/2016 High triglycerides 04/10/2015 Dyslipidemia 04/10/2015 MARIAMA (obstructive sleep apnea) 05/12/2010 Displacement of lumbar inter vertebral disc without myelopathy 10/04/2009 Overview: Surgery at [facility] September 10, 2009, Dr Willard Montalvo MD HTN, GOAL BELOW 140/90 01/02/2009 Overview: Modified per HTN protocol #16. Reflux esophagitis 01/04/2003 Overview: Dx on EGD Sep 2006. Moderate iomprovement with omeprazol 20mg daily and Protonix 40mg daily. Trial of omeprazol 20mg BID. Migraine with aura, intractable 01/04/2003 documented as of this encounter (statuses as of 08/24/2023) Resolved Problems Problem Noted Date Diagnosed Date [...] as of this encounter (statuses as of 08/24/2023) Immunizations Name Administration Dates Next Due COVID-19 [...] on file documented as of this encounter Progress Notes * Tasneem Hilton, medical billing service - 08/24/2023 9:56 AM EDT Mis has not contacted the clinic to schedule/reschedule an appointment for diabetes management per referral from PCP despite multiple attempts to do so by our team. Patient is discharged from [facility] services at this time. Thank you, Tasneem Hilton [employer] [facility] [facility] 08/24/2023,9:56 AM documented in this encounter Plan of Treatment Upcoming Encounters Date Type Department Care Team (Late st Contact Info) Description 12/22/2023 3:40 PM EST Office Visit [facility] [address] [place] [id number] Ab Crain Jr., DO [address] [place] [phone] Scheduled Procedures Name Priority Associated Diagnoses Date/Ti me COLONOSCOPY FLEXIBLE PROXIMA L DIAGNOSTIC Recall History of colonic polyps Health Maintenance Due Date Last Done Comments Pneumococcal Vaccine: Pediatrics (0 to 5 Years) and At-Risk Patients (6 to 64 Years) (1 of 2 - PCV) 06/01/1975 HIV Screening 1984 Hepatitis C Screening 06/01/1987 Hepatitis B Vaccine (1 of 3 - 19+ 3-dose series) [...] Discontinued 03/19/2023, 03/19/2023, 11/13/2019, Additional history exists HPV (Gardasil) Vaccine Aged Out No lo nger eligible based on patient's age to complete this topic MENINGOCOCCAL (MENACTRA/MENVEO) Aged Out No longer eligible based on patient's age to complete this topic documented as of this encounter Medical Devices Implanted Type Area Steel Rigger Device Identifier Shelf Expiration Date Model / Serial / Lot Blakely Ph Capsule Implanted:Qty: 1 on 12/25/2019 by Tasneem Bal, at [facility] N/A: Esophagus 03/27/2021 [id number] / / documented as of this encounter Visit Diagnoses Diagnosis Type 2 diabetes mellitus with hemoglobin A1c goal of less than 7.0% (HCC)- Primary documented in this encounter Additional Health Concerns Infection Onset Date Last Indicated Resolved Time Salmonella 12/25/2021 12/25/2021 documented as of this encounter Care Teams Microarray Specialist Relationship Specialty Start Date End Date Ab Crain Jr., DO [address] [place] [id number] PCP - General Family Medicine 01/01/11 documented as of this encounter
--- NOTE | 2023-08-30 17:01 | Consultation ---
Date of Consultation August 30, 2023 Assessment & Plan (1) Neurogenic claudication due to lumbar spinal stenosis: (2) Diabetes mellitus, type 2: (3) HTN (hypertension): (4) Sleep apnea: (5) GERD (gastroesophageal reflux disease): (6) BPH (benign prostatic hyperplasia): (7) Status post lumbar spine surgery for decompression of spinal cord: Plan Patient status post lumbar surgery. History of diabetes and hypertension Review medication list, order appropriate home medications Discussed with patient and daughter at bedside that we often use insulin here in the hospital and manage his diabetes Continue other medications as prescribed Check basic laboratory studies in a.m. Pain control and VTE prophylaxis per attending Thank you for this consultation History of Present Illness Requesting Physician: Dr. Harris Reason for Consultation: Medical management of diabetes hypertension Attending Physician: Tyson Harris, DO History of Present Illness Patient is a 53-year-old gentleman who presented to [facility] earlier today on the service of Dr. Harris to undergo L4 S1 decompression and fusion. We are asked to see the patient postoperatively for medical management of his multiple medical issues including his diabetes. Time of my evaluation the patient was sitting eating his supper. He denies any chest pain or shortness of breath. He says that his back pain is fairly well-controlled at this time. He denies any numbness or tingling in his lower extremities. He states that his glucose at home has been well-controlled and was surprised when he had a blood sugar of 151 here earlier today. Allergies Allergy/AdvReac Type Severity Reaction Status Date / Time No Known Allergies Allergy Verified 08/30/23 10:40 Home Medications Medication Instructions Recorded Confirmed Type atenolol 50 mg tablet 50 mg PO QAM 08/24/22 08/30/23 History atorvastatin 40 mg tablet 40 mg PO PM 08/24/22 08/30/23 History cetirizine 10 mg tablet (Zyrtec) 10 mg PO QPM 08/24/22 08/30/23 History empagliflozin 25 mg tablet 25 mg PO QAM 08/24/22 08/30/23 History (Jardiance) famotidine 40 mg tablet 40 mg PO BID 08/24/22 08/30/23 History lansoprazole 30 mg delayed 30 mg PO BID 08/24/22 08/30/23 History release,disintegrating tablet rizatriptan 10 mg tablet 10 mg PO DIRECTED PRN Migraine 08/24/22 08/30/23 History Headache tamsulosin 0.4 mg capsule 0.4 mg PO HS 08/24/22 08/30/23 History fluticasone propionate 50 1 spray intranasal UD PRN when 08/04/23 08/30/23 History mcg/actuation nasal cutting grass spray,suspension (Flonase Allergy Relief) semaglutide 0.25 mg or 0.5 mg (2 0.5 mg subcut WK 08/04/23 08/30/23 History mg/3 mL) subcutaneous pen injector (Ozempic) Patient History Medical History Hiatal hernia Migraines Degenerative disc disease Diabetes mellitus, type 2 NIDDM History of COVID-19 x2, most recent Jan 2022 > not hospitalized > symptoms resolved HTN (hypertension) controlled, stable per pt Sleep apnea no device GERD (gastroesophageal reflux disease) controlled, stable per pt Dyslipidemia BPH (benign prostatic hyperplasia) Surgical History (Updated 08/30/23 @ 16:58 by Moshe Angel DO) History of endoscopy History of colonoscopy with polypectomy (03/2023) History of colonoscopy H/O wisdom tooth extraction History of spinal surgery (discectomy) lumbar History of vasectomy Family History Mother Diabetes Social History Smoking Status: Never smoker Second Hand Exposure: No; Do You Dip or Chew Tobacco: No (hx, quit a few yrs ago/advised); Hx Alcohol Use: Yes Hx Substance Use: No Preferred Language: Macedonian Communication Ability: Effective Hairspring Studder Required: No Beliefs That Will Affect Care: None Current Living Situation: Spouse Feels Safe at Home: Yes Assistive Devices: Contacts and Glasses Physical Exam Physical Exam: Constitutional: Alert HEENT: Mucous membranes moist. Lungs: Clear to auscultation, decreased, no wheezes rales or rhonchi CV: S1-S2, regular Abdomen: Soft, nontender, nondistended Extremities: No significant edema Neuro: No focal deficits, sensation intact in lower extremity, motion intact in lower extremity Musculoskeletal: EMANUEL drain coming from surgical incision Psych: Cooperative, normal mood Results & Data Vital Signs (Past 12 Hours) Vital Signs Temp Pulse Pulse Resp BP Pulse Ox O2 Del Method 08/30/23 16:27 36.4 C L 68 18 110/68 99 Room Air 08/30/23 15:53 36.9 C 66 18 119/81 95 Nasal Cannula 08/30/23 15:23 Nasal Cannula 08/30/23 15:20 36.6 C 64 18 113/69 99 Nasal Cannula 08/30/23 14:55 60 12 115/66 99 Nasal Cannula 08/30/23 14:40 36.4 C L 68 12 104/57 L 100 Nasal Cannula 08/30/23 14:30 70 16 118/65 97 Nasal Cannula 08/30/23 14:20 74 12 120/70 98 Oxymask 08/30/23 14:10 72 12 123/73 96 Oxymask 08/30/23 13:57 36.6 C 72 12 112/63 98 Oxymask 08/30/23 10:45 Room Air 08/30/23 10:45 36.4 C L 59 L 20 135/82 100 Room Air O2 Flow Rate 08/30/23 16:27 08/30/23 15:53 2 08/30/23 15:23 2 08/30/23 15:20 2 08/30/23 14:55 3 08/30/23 14:40 3 08/30/23 14:30 2 08/30/23 14:20 5 08/30/23 14:10 5 08/30/23 13:57 10 08/30/23 10:45 08/30/23 10:45 Diagnostic Findings Glucose 151 Personally reviewed preoperative EKG from July 2023, sinus rhythm no acute changes Personally reviewed preoperative chest x-ray from July 2023, no infiltrate, clear to auscultation Reviewed EMR from other facility laboratory studies from July 2023 Hemoglobin A1c 5.9 Creatinine 1.18 Hemoglobin 16.5
[2023-08-30] MEDS: INSULIN ASPART PER UNIT CHARGE SC SCH (17:10)
[2023-08-30] MEDS: oxyCODONE HCL IR 5 MG TAB (IMMEDIATE RELEASE) PO PRN (17:16)
[2023-08-30] MEDS: TAMSULOSIN HCL 0.4 MG CAP PO SCH (20:13)
[2023-08-30] MEDS: CETIRIZINE HCL 10 MG TABLET PO SCH (20:13)
[2023-08-30] MEDS: LANSOPRAZOLE 30 MG SOLTAB PO SCH (20:14)
[2023-08-30] MEDS: ATORVASTATIN 40 MG TAB PO SCH (20:14)
[2023-08-30] MEDS: DOCUSATE SODIUM/SENNA 50/8.6MG TAB PO SCH (20:14)
[2023-08-30] MEDS: FAMOTIDINE 40 MG TABLET PO SCH (20:14)
[2023-08-31] MEDS: INSULIN ASPART PER UNIT CHARGE SC SCH (03:03)
[2023-08-31] MEDS: POLYETHYLENE (MIRALAX) 17 GM PACK PO SCH (05:17)
[2023-08-31 07:48] LABS: Basophils # (auto) 0.03 K/uL (0.00-0.20); Basophils % (auto) 0.3 %; Eosinophils # (auto) 0.05 K/uL (0.00-0.50); Eosinophils % (auto) 0.5 %; Hematocrit (blood only) 40.3 % (42.0-52.0); Hemoglobin 13.5 g/dl (14.0-18.0); Immature Granulocytes # (auto) 0.03 K/uL (0.01-0.20); Immature Granulocytes % (auto) 0.3 %; Lymphocytes # (auto) 1.38 K/uL (1.20-3.40); Mean Corpuscular Hemoglobin 29.8 pg (25.0-34.0); Mean Corpuscular Hgb Conc 33.5 g/dL (32.0-36.0); Monocytes # (auto) 1.02 K/uL (0.11-0.59); Monocytes % (auto) 9.6 %; Neutrophils # (auto) 8.13 K/uL (1.40-6.50); Neutrophils % (auto) 76.3 %; Platelet Count 147 K/uL (130-400); RDW Coefficient of Variation 13.4 % (11.5-14.5); RDW Standard Deviation 43.8 fL (36.4-46.3); Red Blood Count 4.53 M/uL (4.70-6.10); White Blood Count 10.64 K/ul (4.8-10.8)
[2023-08-31 08:04] LABS: BUN Creatinine Ratio 13.9 (10-20); Calcium 8.5 mg/dl (8.6-10.3); Creatinine Clr Calc Pharmacy 100.1 ml/min; Est GFR (African American) 97.3 ml/min; Est GFR (Non-African American) 83.9 ml/min; Magnesium 1.8 mg/dl (1.7-2.4); Phosphorus 4.2 mg/dl (2.5-4.9)
[2023-08-31] MEDS ORDERED: EMPAGLIFLOZIN 25 MG TAB PO SCH (09:00)
[2023-08-31] MEDS: dexAMETHasone 6 MG in SYRINGE 0 ML IV SCH (09:01)
[2023-08-31] MEDS: ATENOLOL 50 MG TABLET PO SCH (09:04)
--- NOTE | 2023-08-31 09:23 | Orthopedic Progress Note ---
Date of Service August 31, 2023 Assessment & Plan (1) Neurogenic claudication due to lumbar spinal stenosis: Plan: Today we will continue with physical therapy monitor his EMANUEL output hopefully discharge home in the next day or so. Admission and Anticipated Discharge Date Admission Date: August 30, 2023 Subjective Back pain controlled leg pain markedly improved Physical Exam Physical Exam: Patient is up and ambulating. Discussed when to testing. Results & Data Vital Signs (Past 12 Hours) Vital Signs Temp Pulse Resp BP Pulse Ox O2 Del Method 08/31/23 06:59 36.6 C 65 18 112/78 100 Room Air 08/31/23 03:00 36.5 C 62 16 115/70 98 Room Air 08/30/23 23:14 36.6 C 74 16 104/64 96 Room Air 08/30/23 22:39 Room Air Queries Orthopedic Spine Obesity: Yes
[2023-08-31] MEDS: traMADol HCL 50 MG TABLET PO PRN (11:18)
--- NOTE | 2023-08-31 12:32 | Pharmacy Report ---
Pharmacy Glycemic Short Note 2 - Date of Service August 31, 2023 - Glycemic Short BSG Results (Last 24 hours): 08/30/23 08/30/23 08/30/23 14:00 16:30 20:11 Glucose POC Glucose 102 H 151 H 110 H 08/31/23 08/31/23 08/31/23 03:03 07:34 07:37 Glucose 99 POC Glucose 92 95 08/31/23 11:32 Glucose POC Glucose 111 H OUTPATIENT ANTIDIABETIC REGIMEN: * Jardiance 25mg PO daily * Ozempic 0.5mg SQ weekly, on Sundays * HbA1c: 5.9% (08/12/23) ASSESSMENT: * Mr Lopez is a 53yo diabetic M, POD #1 s/p spinal procedure with Dr Harris yesterday. * Pt rec'd a dose of IV dexamethasone pre-op yesterday and is scheduled to receive IV DXM x3 days. Thus far, pt is not exhibiting hyperglycemia as a result. * Pharmacy will continue to follow and adjust regimen as indicated. PLAN FOR INPATIENT GLYCEMIC CONTROL: * Hold outpatient oral diabetes medications * Basal insulin * none at this time * Bolus insulin * NovoLog per scale ACHS or Q6hrs while NPO * Goal Range: Low 110 mg/dL - High 140 mg/dL * Correction Factor: 25 mg/dL/unit * Nutritional / Prandial insulin per carb ratio of 1 unit per 8 grams CHO consumed
--- NOTE | 2023-08-31 14:40 | Hospitalist Progress Note ---
Date of Service August 31, 2023 Assessment & Plan (1) Neurogenic claudication due to lumbar spinal stenosis: (2) Diabetes mellitus, type 2: (3) HTN (hypertension): (4) Sleep apnea: (5) GERD (gastroesophageal reflux disease): (6) BPH (benign prostatic hyperplasia): (7) Status post lumbar spine surgery for decompression of spinal cord: Plan Continue current treatment plan. Recommend patient continue home medications when discharge. Medically ready for discharge when appropriate per attending. Will sign off. Please call with questions or concerns Admission and Anticipated Discharge Date Admission Date: August 30, 2023 Subjective Patient seen this morning. Tolerating diet. Pain is fairly well-controlled. No acute issues overnight Physical Exam Physical Exam: Constitutional: Alert HEENT: Mucous membranes moist. Lungs: Clear to auscultation, decreased, no wheezes rales or rhonchi CV: S1-S2, regular Abdomen: Soft, nontender, nondistended Extremities: No significant edema Musculoskeletal: EMANUEL drain from surgical site intact Neuro: No focal deficits Psych: Cooperative, normal mood Results & Data Results & Data Vital Signs (Past 12 Hours) Vital Signs Temp Pulse Resp BP Pulse Ox O2 Del Method 08/31/23 12:23 36.7 C 65 17 117/75 98 Room Air 08/31/23 06:59 36.6 C 65 18 112/78 100 Room Air 08/31/23 03:00 36.5 C 62 16 115/70 98 Room Air Diagnostic Findings Reviewed imaging, laboratory and diagnostic studies. Pertinent findings as below. Glucoses reviewed Electrolytes within normal ranges CBC stable
--- NOTE | 2023-09-01 08:32 | Discharge Summary ---
Date of Service September 01, 2023 Admission HPI Per Admitting Provider This is a 53-year-old male presents with chronic persistent back and bilateral leg pain after failing since course of nonoperative care is here for surgical intervention. Admission Exam (Per Admitting) Constitutional WD/WN, vitals as above Eyes normal visual ferrer by confrontation ENMT external ear and nose normal, oropharynx normal Neck normal visual inspection Respiratory normal respiratory effort Cardiovascular Extremities: normal capillary refill Gastrointestinal (Abdomen) Inspection/Auscultation: abdomen normal to inspection Musculoskeletal Spine: + pain with thoraco-lumbar ROM Extremities: extremities normal to inspection and strength 5/5 throughout Skin no rashes, warm and dry Neurologic normal touch/pain/proprioception and moves all extremities Psychiatric A+Ox3, euthymic affect Eye Contact: good eye contact Discharge Data Consultations 08/30/23 15:18 Consult Hospitalist Routine Procedures Performed Operation Date: 08/30/23 12:15 Actual Procedures p L4-S1 Decompression and Fusion, with application of Bone Morphogenetic Protein, and Morpheus Bone Graft with interbody fusion L4-S1(Not Applicable) - Tyson Harris DO Hospital Course (1) Neurogenic claudication due to lumbar spinal stenosis: Eneida being discharged home on postoperative day 2 status post revision decompression and fusion L4-S1. He has had an uneventful postoperative course. Lab values have been stable. He is ambulating several 100 feet in physical therapy plus the hallways. Pain is controlled. EMANUEL drain output last shift was 20 cc. Discharge Instructions ACTIVITY RECOMMENDATIONS: SELF CARE INSTRUCTIONS AFTER THORACIC/LUMBAR FUSIONS 1. You may walk to your tolerance. It is good exercise for your legs and back. Expect some back and intermittent leg aches and pains. 2. You may perform "counter-top" level activities (make a sandwich, melvin with a project, etc.). 3. No bending or lifting of more than 10 pounds or back twisting of any nature (roll like a log when turning in bed). 4. You may ride in a car for 20-30 minutes at a time. No driving until after your first visit with your doctor. 5. Frequent changes of position and restricting sitting to 30 minutes at a time will help limit the amount of back spasms and stiffness you may experience. 6. You may discontinue the use of ambulatory aids (cane, crutches, etc.) once your strength and confidence allow. 7. You may transaction coordinator the shower and let water strike your incision when you arrive home at least once daily. Do not take a tub bath, sit in a hot tub or go into a swimming pool until after your first recheck in the office. SPECIAL CARE INSTRUCTIONS: VERY IMPORTANT TO READ AND REVIEW A. Your surgical incision has been closed with a cosmetic suture under the skin that will dissolve in about 6 weeks. In 14 days, you can use a pair of clean scissors and cut the suture that is left outside of the skin at the ends of your incision. 1. The small skin tapes can be removed 7 days after surgery if they have not fallen off by that point. 2. You may keep the wound open to air as much as possible to promote healing after post-op day number 5 unless told otherwise by your doctor. 3. If you think the wound looks like it is becoming infected (redness or worsening drainage) and/or you are experiencing fever, chill or worsening back pain and muscle spasms, contact the office so that we may evaluate you as soon as possible. B. Complications are uncommon, but please contact us if you have any signs or symptoms of: 1. wound infection (fever higher than 102.5 degrees F, redness, separation of wound, drainage, or increasing pain from the incision) 2. blood clots in legs (pain, swelling, redness and warmth in legs) 3. urinary tract infection (fever higher than 102.5 degrees F, burning upon urination or increased frequency of urination) 4. nerve problems (inability to walk on your toes or heels, numbness, loss of bowel or bladder control) 5. any other symptoms that concern you C. Please call the office at if you have any concerns or questions about your operation or recovery. D. No smoking! Smoking drastically decreases the chance of a solid fusion. E. Do not take any anti-inflammatory medications (Indocin, Advil, Motrin, Aspirin, Naprosyn, etc.) as these may inhibit the chance of a solid fusion. Tylenol is okay to take for pain. MANAGING PAIN AFTER SPINAL SURGERY 1. Narcotic medication is intended for short-term use and will be provided for surgical pain. Surgical pain usually lasts for a period of 4-6 weeks. Narcotic medication includes Percocet, Vicodin, Darvocet, Tylenol #3 or Lortab. 2. Longer-term pain is more appropriately treated with non-narcotic medication such as Tylenol ES. 3. Muscle spasm is not appropriately treated with narcotics. Muscle relaxers such as Soma, Flexeril or Skelaxin can be used along with Tylenol ES. 4. Remember that we all live with some "aches and pains". This is not unusual or uncommon after an injury or as we get older. a. Back pain is expected and may include muscle spasms for 4 to 6 weeks after surgery. The pain should gradually improve. If the pain worsens for no apparent reason, please contact the office. b. Intermittent leg pain may also be experienced and should not be concerned about unless it worsens for no apparent reason. If so, please contact the office. 5. We will provide appropriate medication within the normal guidelines of their prescribed use. We will also be very cautious and aware of potential abuse and extended duration of patients' medication needs. a. Pain medications are for your comfort and to assist with sleep and rest so that the tissue can heal. They are not provided in order to return to normal activity and should not be used through the day. To do so or worsening pain at night can result from ongoing tissue damage and d evelopment of tolerance to the prescribed medicine. 6. Please allow 2-3 days to process refills. Prescriptions will not be mailed but must be picked up at the office. FOLLOW UP VISIT: Keep your scheduled follow-up appointment. Any questions, please call the office at .
--- NOTE | 2023-09-01 12:59 | Hospitalist Progress Note ---
Date of Service September 01, 2023 Assessment & Plan (1) Neurogenic claudication due to lumbar spinal stenosis: Plan: status post L4-S1 decompression and fusion on 08/30/2023 he has been stable and denies any significant symptoms pain is controlled with current medication he has been ambulating in the room without any difficulties he will be discharged by the primary service home today (2) Diabetes mellitus, type 2: Plan: blood sugar remains controlled (3) HTN (hypertension): Plan: blood pressure is controlled with current medications (4) Sleep apnea: (5) GERD (gastroesophageal reflux disease): (6) BPH (benign prostatic hyperplasia): (7) Status post lumbar spine surgery for decompression of spinal cord: Plan: as above medically stable to be discharged Plan Continue current treatment plan. Recommend patient continue home medications when discharge. Medically ready for discharge when appropriate per attending. Will sign off. Please call with questions or concerns Admission and Anticipated Discharge Date Admission Date: August 30, 2023 Subjective 09/01/2023 The patient was seen and examined in medical floor He has been stable and denies any significant pain at the back He does not have any radiculopathic pain He has been ambulating in the room without difficulties and will be discharged home this afternoon Review of Systems Review of Systems: all systems reviewed and are unremarkable except as noted below Physical Exam Physical Exam: moving around in the room without any difficulties Constitutional: well developed and well nourished; not ill appearing Eyes: PERRL, conjunctivae normal, anicteric sclerae ENMT: external ear and nose normal, oropharynx normal Neck: trachea midline, no thyromegaly Respiratory: no respiratory distress Auscultation: lungs clear to auscultation bilaterally Cardiovascular: Rate/Rhythm: regular rate and regular rhythm; not tachycardic Heart Sounds: normal S1 and normal S2; no murmur Extremities: no edema Gastrointestinal (Abdomen): Inspection/Auscultation: normal bowel sounds; abdomen not distended Percussion/Palpation: abdomen soft; abdomen nontender Musculoskeletal: localized back tenderness at the operation site. no radiculopathic pain Neurologic: normal touch/pain/proprioception and moves all extremities; no focal motor deficits Psychiatric: A+Ox3, euthymic affect Lymphatic: no cervical or axillary lymphadenopathy Results & Data Results & Data Vital Signs (Past 12 Hours) Vital Signs Temp Pulse Pulse Resp BP Pulse Ox O2 Del Method 09/01/23 07:54 36.6 C 64 16 120/82 96 Room Air 09/01/23 07:20 36.5 C 68 16 128/79 97 Room Air
== END 2023-09-01 10:05 | disposition home or self-care (01) | DRG 455 ==
LOC: ASU 10:21 → 3E 13:54